=== PATIENT | male | born 1990 | race African-American/Black ===

== ENCOUNTER 2025-03-21 03:19 | Emergency (ER) | payer SELFPAY ==
[~2025-03-21] VITALS: Ht 160 cm; Wt 66.0 kg
[2025-03-21 03:28] VITALS: O2SAT 100
[2025-03-21 04:12] LABS: BASOPHILS % 0.9 % (0.0-2.0); EOSINOPHILS % 1.1 % (0.0-5.0); HEMATOCRIT. 46.7 % (42.0-52.0); HEMOGLOBIN. 15.4 g/dL (14.0-18.0); LYMPHOCYTES % 29.6 % (20.0-50.0); MEAN PLATELET VOLUME 8.6 fl (7.4-10.4); MONOCYTES % 7.6 % (2.0-8.0); NEUTROPHILS % 60.8 % (40.0-76.0); PLATELET 181 x1000/uL (130-400); RED BLOOD CELL COUNT 5.23 mill/uL (4.7-6.1); RED CELL DISTRIBUTION WIDTH 13.6 % (11.6-14.6)
[2025-03-21 04:19] LABS: CLARITY URINE CLEAR (CLEAR); COLOR URINE YELLOW (YELLOW); GLUCOSE URINE NEGATIVE (NEGATIVE); KETONES URINE NEGATIVE (NEGATIVE); LEUKOCYTE ESTERASE URINE NEGATIVE (NEGATIVE); NITRITE URINE NEGATIVE (NEGATIVE); OCCULT BLOOD URINE NEGATIVE (NEGATIVE); PH URINE 6.0 (4.5-8.0); PROTEIN URINE NEGATIVE (NEGATIVE); SPECIFIC GRAVITY URINE 1.016 (1.005-1.030); UROBILINOGEN URINE 0.2 E.U./dL (0.2-1.0)
[2025-03-21 04:28] LABS: CREATININE 1.1 mg/dL (0.6-1.3); UREA NITROGEN BLOOD 5 mg/dL (9-23)
[2025-03-21 04:57] LABS: TROPONIN I HIGH SENSITIVITY < 4 ng/L (3.0-53)
[2025-03-21 06:31] VITALS: BP 122/77; PULSE 65; RESP 14; TEMP 36.5; O2SAT 100
[2025-03-21] MEDS: IOHEXOL-350 100 ML BOTTLE ONE (06:36)
[2025-03-21 09:01] LABS: *AMPHETAMINES SCREEN URINE NEGATIVE (NEGATIVE); *BARBITURATES SCREEN URINE NEGATIVE (NEGATIVE); *BENZODIAZEPINES SCREEN URINE NEGATIVE (NEGATIVE); *COCAINE SCREEN URINE NEGATIVE (NEGATIVE); CANNABINOID URINE SCREEN NEGATIVE (NEGATIVE); METHADONE URINE SCREEN NEGATIVE (NEGATIVE); OPIATES URINE SCREEN NEGATIVE (NEGATIVE); PHENCYCLIDINE URINE SCREEN NEGATIVE (NEGATIVE)
[2025-03-21 09:02] LABS: ECSTASY MDMA SCREEN URINE NEGATIVE (NEGATIVE)
== END 2025-03-21 06:38 | disposition home or self-care (01) ==
LOC: ER 03:19
DX: R53.1 Weakness (principal); R42 Dizziness and giddiness; I45.2 Bifascicular block; Z79.899 Other long term (current) drug therapy
CPT/HCPCS: 80305; 80048; 81003; 85025; 85379; 84484; 36415; 71045; 71275; 93005; 99285; Q9967; Z7610